=== PATIENT | male | born 1990 | race Two or more races ===

== ENCOUNTER 2020-10-16 13:57 | Outpatient (CLI) | payer OTHER | END 2020-10-16 17:20 | disposition home or self-care (01) | LOC: OFIC 805 13:57 | PROVIDERS: ATTEND Otolaryngology | DX: H69.83 Other specified disorders of Eustachian tube, bilateral (principal); R09.81 Nasal congestion; H73.893 Other specified disorders of tympanic membrane, bilateral; H93.8X3 Other specified disorders of ear, bilateral ==